=== PATIENT | male | born 1990 | race Caucasian/White ===

== ENCOUNTER 2019-08-18 23:19 | Emergency (ER) | payer MEDICAID ==
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
== END 2019-08-18 23:45 | disposition home or self-care (01) ==
LOC: JD.ED 23:19
DX: F10.120 Alcohol abuse with intoxication, uncomplicated (principal); F17.210 Nicotine dependence, cigarettes, uncomplicated
CPT/HCPCS: 99282; 99283